=== PATIENT | female | born 1995 | race Caucasian/White ===

== ENCOUNTER 2022-03-26 22:41 | Emergency (ER) | payer OTHER, SELFPAY ==
[2022-03-26 22:43] VITALS: BP 123/81; PULSE 75; RESP 18; TEMP 36.9; O2SAT 97
--- NOTE | 2022-03-26 22:57 | ED.SKABFB ---
HPI - Skin/Abscess/Foreign Bdy General Chief complaint: Skin/Abscess/Foreign Body Stated complaint: splinter in left pinky nail Time Seen by Provider: 03/26/22 22:51 Source: patient Mode of arrival: ambulatory Limitations: no limitations History of Present Illness HPI narrative: 26 year old female presents today with complaints of splinter under the left 5th digit nail. Occurred just prior to arrival. Related Data Allergies Allergy/AdvReac Type Severity Reaction Status Date / Time No Known Allergies Allergy Verified 03/26/22 22:54 Review of Systems Review of Systems: CONSTITUTIONAL: Denies fever, chills, or sweats. EYES: Denies visual changes, redness, or discharge. ENT: Denies rhinorrhea, congestion, sore throat, or otalgia. CARDIOVASCULAR: Denies chest pain, palpitations, or edema. RESPIRATORY: Denies cough or dyspnea. GASTROINTESTINAL: Denies abdominal pain, nausea, vomiting, or diarrhea. GENITOURINARY: Denies dysuria or hematuria. SKIN: Splinter under left pinky nail. Denies rash or itching. MUSCULOSKELETAL: Denies back pain, joint pain, or myalgia. NEUROLOGIC: Denies headache, numbness, dizziness, or weakness. PSYCHIATRIC: Denies anxiety or depression. Exam Narrative: GENERAL: Well-appearing, well-nourished, and in no acute distress. HEAD: Normocephalic, atraumatic. EYES: PERRLA and EOMI. CHEST: Clear to auscultation. No respiratory distress. No wheezes rales or rhonchi HEART: Regular rate and rhythm. No murmur heard. Normal peripheral pulses. SKIN: Warm, dry, no rash. Foreign object noted onto her left fifth digit nail. NEURO: No focal deficits. Alert and oriented x3. PSYCH: Normal mood and affect. Course Vital Signs Vital signs: Vital Signs Temperature 36.9 C 03/26/22 22:43 Pulse Rate 75 03/26/22 22:43 Respiratory Rate 18 03/26/22 22:43 Blood Pressure 123/81 03/26/22 22:43 Pulse Oximetry 97 03/26/22 22:43 Oxygen Delivery Room Air 03/26/22 22:43 Temperature 36.9 C 03/26/22 22:43 Pulse Rate 69 03/27/22 00:11 Respiratory Rate 16 03/27/22 00:11 Blood Pressure 116/72 03/27/22 00:11 Pulse Oximetry 98 03/27/22 00:11 Oxygen Delivery Room Air 03/26/22 22:43 Procedures Foreign Body Removal Foreign Body #1: Foreign Body Removal Date: 03/26/22 Foreign Body Removal Time: 23:30 Time Out Performed: yes Site: left (fifth digit under nail) Description of foreign body: other (wood splinter) Sedation/Analgesia: other (digital web block lidocaine 1% 2.5ml) Technique: incision made to facilitate removal (v shaped incision made into nail) Confirmed by:: direct visualization Complications: none Foreign Body Removal Narrative: Patient with wood splinter under 5th digit nail. Analgesia obtained by digital web block with total of 2.5ml of 1%lidocaine. v shaped cut made into nail. 1cm long wood splinter removed intact. Antibiotic ointment and bandaid applied. MDM - Skin/Abscess/Foreign Bdy Differential Diagnosis Differential diagnosis: Likely other (subungual splinter, subungual hemorrage ) Discharge Plan Discharge Clinical Impression: Subungual foreign body of finger Patient Disposition: Home, Self-Care Condition: Improved Instructions: Antibiotic Form Additional Instructions: Keep wound clean. May use antibiotic ointment and bandaid until healed. Follow up with primary if needed. Follow-up/Referrals: PHYSICIAN,BUSINESS [employer]ATIONSH[employer] MANAGER [Primary Care Provider] - Time of Disposition: 23:50
[2022-03-27] MEDS: TETANUS,DIPHTHERIA,AC PERTUSSIS ADULT (0.5 ML) BOOSTRIX IM (00:01)
[2022-03-27 00:11] VITALS: BP 116/72; PULSE 69; RESP 16; O2SAT 98
== END 2022-03-27 00:05 | disposition home or self-care (01) ==
PROVIDERS: Emergency Provider Nurse Practitioner Family
DX: S60.457A Superficial foreign body of left little finger, initial encounter (principal); Z23 Encounter for immunization; W45.8XXA Other foreign body or object entering through skin, initial encounter
CPT/HCPCS: 10120; 90471; 90715; 99282